=== PATIENT | female | born 1985 | race Caucasian/White ===

== ENCOUNTER 2018-08-08 11:44 | Day surgery (SDC) | payer BC ==
[2018-08-03 15:19] VITALS: BMI 21.7
[~2018-08-08 11:44] MED LIST: LACTATED RINGERS 1,000 ML IV SCH
[2018-08-08 12:04] VITALS: TEMP 96.6
[2018-08-08] MEDS ORDERED: LIDOCAINE 1% INJ 10MG/ML (20 ML MDV) ONE (13:03)
[2018-08-08] MEDS ORDERED: PROPOFOL 10 MG/ML 20 ML VIAL IV ONE (13:03)
[2018-08-08 13:39] VITALS: RESP 18
--- NOTE | 2018-08-08 13:41 | P.PCN ---
Date of Procedure: 08/08/18 Procedure(s) Performed: Procedure: Total colonoscopy. Preoperative diagnosis: Abdominal pain and change in bowel habits. Postoperative diagnosis: Exam within normal limits. Preparation: HalfLytely prep. Sedation: Was provided by anesthesia. Brief clinical history: The patient is a 32-year-old female who is scheduled for this evaluation because of chronic constipation and abdominal pain since October of this year. The purpose is to rule out neoplasia or other pathology. Procedure: With the patient on her left lateral decubitus position and after informed consent and adequate sedation, the perianal area was inspected and it did not show any fissures or fistulas. There were no masses felt on digital rectal examination. The Olympus CFH 190L video colonoscope was then inserted in the rectum in the usual fashion and advanced to the cecum. The mucosa appeared healthy. No polyps or tumors were seen or any obvious diverticular disease or other pathology. The patient tolerated the procedure well Plan: The patient was reassured. She will follow-up with you as planned and we would keep you updated on her progress.
[2018-08-08 14:09] VITALS: BP 110/69; PULSE 76
== END 2018-08-08 14:16 | disposition home or self-care (01) ==
LOC: ORWHC2ENDO 11:44
DX: K59.09 Other constipation (principal); R10.9 Unspecified abdominal pain
CPT/HCPCS: 45378; J2001; J2704